=== PATIENT | male | born 1945 | race Caucasian/White ===

== ENCOUNTER 2018-05-21 06:59 | Day surgery (SDC) | payer MEDICARE, OTHER ==
[2018-05-21] MEDS ORDERED: fentaNYL 100 MCG/2 ML SDV ONE (07:20)
[2018-05-21] MEDS ORDERED: Midazolam 1 MG/ML 2 ML SDV ONE (07:20)
[2018-05-21] MEDS ORDERED: Lactated Ringers 1,000 ML IV SCH (07:45)
[2018-05-21] MEDS ORDERED: Propofol 200 MG/20 ML SDV ONE (08:28)
[2018-05-21 09:33] VITALS: BP 121/79
--- NOTE | 2018-05-21 13:17 | PROC ---
DATE OF PROCEDURE: 05/21/2018 INDICATION: Fito is a 73-year-old male who comes in for a screening colonoscopy. The risks and benefits were explained, and he was taken to the OR. PROCEDURE IN DETAIL: Anesthesia was given by nurse beam carrier hauler pusher. During the procedure, we used 2 mg of Versed, 100 mcg of fentanyl, and 130 mg of propofol. The Olympus 180 scope was used, was placed into the rectum and advanced under direct vision. Examination of the rectum, prior to using the tube, the prostate was absent and no obvious pathology was noted. The tube was advanced and did get to the cecum. Upon retraction of the tube, noted no lesions or ulceration, and no abnormality throughout the entire colon. The sigmoid and rectum were unremarkable. The tube was removed. The patient tolerated the procedure well. PREOPERATIVE DIAGNOSIS: Screening colonoscopy. POSTOPERATIVE DIAGNOSIS: Normal colon from cecum to rectum. Brandyn Patten MD /[id number]
== END 2018-05-21 10:07 | disposition home or self-care (01) ==
LOC: JP.SDS 06:59
PROVIDERS: ATTEND Internal Medicine
DX: Z12.11 Encounter for screening for malignant neoplasm of colon (principal); I10 Essential (primary) hypertension; E78.5 Hyperlipidemia, unspecified; D49.59 Neoplasm of unspecified behavior of other genitourinary organ; Z88.0 Allergy status to penicillin; Z88.2 Allergy status to sulfonamides; Z88.5 Allergy status to narcotic agent; Z88.6 Allergy status to analgesic agent
CPT/HCPCS: G0121; J2250; J2704; J3010; J7120

== ENCOUNTER 2020-12-07 11:33 | Emergency (ER) | payer MEDICARE, OTHER ==
[2020-12-07 11:52] VITALS: BP 141/71; PULSE 61
--- NOTE | 2020-12-07 12:31 | EDM.PDOC ---
ED HPI GENERAL MEDICAL PROBLEM - General Chief Complaint: Genitourinary Problem Stated Complaint: catheter not draining Time Seen by Provider: 12/07/20 12:27 Source of Information: Reports: Patient, Family History Limitations: Reports: No Limitations - History of Present Illness INITIAL COMMENTS - FREE TEXT/NARRATIVE: 75-year-old gentleman presents emergency department today complaining of his Fry catheter dysfunctioning he is not had any urine output increased abdominal pressure recently had bladder surgery at the [facility] yesterday Bladder Pain Score (Numeric/FACES): 8 - Related Data Allergies Allergy/AdvReac Type Severity Reaction Status Date / Time acetaminophen Allergy Dizziness Verified 12/07/20 11:54 [From Darvocet-N] Penicillins Allergy Rash Verified 12/07/20 11:54 propoxyphene Allergy Dizziness Verified 12/07/20 11:54 [From Darvocet-N] Sulfa (Sulfonamide Allergy Rash Verified 12/07/20 11:54 Antibiotics) Home Meds: Home Meds Aspirin [Halfprin] 81 mg PO DAILY 02/20/17 [History] B-Complex with Vitamin C [Super B Complex-Vitamin C] 1 each PO DAILY 02/20/17 [History] Cholecalciferol (Vitamin D3) [Vitamin D3] 2,000 mg PO BID 02/20/17 [History] Chromium/Herbal Complex No.238 [Green Tea Caplet] 1 each PO DAILY 02/20/17 [ History] Doxazosin Mesylate [Cardura] 1 mg PO BID 02/20/17 [History] Ezetimibe [Zetia] 10 mg PO DAILY 02/20/17 [History] Fish Oil/[place]-3 Fatty Acids [Fish Oil] 1,000 mg PO DAILY 02/20/17 [History] Flaxseed/Omega3,6,9/Fatty Acid [Flax Seed Oil 1,300 mg Softgel] 1 each PO DAILY 02/20/17 [History] Glucosam/Chondr/Collagn/Hyalur [Glucosamine & Chondroitin Cap] 1 each PO DAILY 02/20/17 [History] Pomegranate Fruit Extract [Pomegranate] 250 mg PO ASDIRECTED 02/20/17 [History] Psyllium with Sucrose [Metamucil] 1 each PO TID 02/20/17 [History] Red Yeast Rice 600 mg PO ASDIRECTED 02/20/17 [History] Ubidecarenone [Coenzyme Q10] 100 mg PO DAILY 02/20/17 [History] Valsartan [Diovan] 20 mg PO QID 02/20/17 [History] amLODIPine Besylate [Amlodipine Besylate] 5 mg PO DAILY 02/20/17 [History] Clopidogrel Bisulfate [Clopidogrel] 75 mg PO DAILY 05/20/18 [History] Ciprofloxacin HCl [Cipro] 500 mg PO BID 12/07/20 [History] Past Medical History HEENT History: Reports: Other (See Below) Other HEENT History: retnal seperation Cardiovascular History: Reports: Hypertension Gastrointestinal History: Reports: None Genitourinary History: Reports: Other (See Below) Other Genitourinary History: prostate removed Musculoskeletal History: Reports: Fracture Other Musculoskeletal History: wrist Oncologic (Cancer) History: Reports: Prostate - Infectious Disease History Infectious Disease History: Reports: Chicken Pox, Measles, Mumps - Past Surgical History Head Surgeries/Procedures: Reports: None HEENT Surgical History: Reports: None Cardiovascular Surgical History: Reports: Coronary Artery Stent GI Surgical History: Reports: Colonoscopy Male Surgical History: Reports: Prostatectomy, Other (See Below) Other Male Surgeries/Procedures: 2 bladder tumors removed. Oncologic Surgical History: Reports: Other (See Below) Other Oncologic Surgeries/Procedures: prostate removed Social & Family History - Family History Family Medical History: No Pertinent Family History - Tobacco Use Tobacco Use Status *Q: Never Tobacco User Second Hand Smoke Exposure: No - Caffeine Use Caffeine Use: Reports: Coffee, Soda - Alcohol Use Days Per Week of Alcohol Use: 7 Number of Drinks Per Day: 2 Total Drinks Per Week: 14 - Recreational Drug Use Recreational Drug Use: No ED ROS GENERAL - Review of Systems Review Of Systems: See Below : Reports: Urinary Retention ED EXAM, RENAL/ - Physical Exam Exam: See Below Text/Narrative:: Examination of the urinary catheter by nursing staff revealed the apparatus had been blocked off after the urinary catheter plug was removed the catheter opened and function freely Exam Limited By: No Limitations General Appearance: Alert, WD/WN, No Apparent Distress Course - Vital Signs Last Recorded V/S: Last Vital Signs Temp 98.0 F 12/07/20 11:54 Pulse 61 12/07/20 11:54 Resp 16 12/07/20 11:54 BP 141/71 H 12/07/20 11:54 Pulse Ox 99 12/07/20 11:54 Departure - Departure Time of Disposition: 12:30 Disposition: Home, Self-Care 01 Condition: Fair Clinical Impression: Urinary catheter dysfunction Qualifiers: Encounter type: initial encounter Qualified Code(s): T83.018A - Breakdown (mechanical) of other urinary catheter, initial encounter - Discharge Information Instructions: Indwelling Urinary Catheter Care, Adult Referrals: Brandyn Patten Sr, MD [Primary Care Provider] - Additional Instructions: Follow-up with primary care and urology as needed Sepsis Event Note (ED) - Evaluation Sepsis Screening Result: No Definite Risk - Focused Exam Vital Signs: Vital Signs Temp Pulse Resp BP Pulse Ox 12/07/20 11:54 98.0 F 61 16 141/71 H 99 12/07/20 11:50 98.0 F 61 16 141/71 H 99 - Assessment/Plan Plan: Assessment Acuity = acute Site and laterality = urinary catheter retention Etiology = mechanical blockage on the catheter Manifestations = none Location of injury = Home Lab values = none Plan Education was provided on urinary catheter care keep follow-up appointments with primary care and urology This note was dictated using [employer] voice recognition software please call with any questions on syntax or grammar.
== END 2020-12-07 12:40 | disposition home or self-care (01) ==
LOC: JP.ED 11:33
DX: T83.098A Other mechanical complication of other urinary catheter, initial encounter (principal); I10 Essential (primary) hypertension; Z88.6 Allergy status to analgesic agent; Z88.0 Allergy status to penicillin; Z88.2 Allergy status to sulfonamides; Z79.82 Long term (current) use of aspirin; Z79.899 Other long term (current) drug therapy; Z79.02 Long term (current) use of antithrombotics/antiplatelets
CPT/HCPCS: 99283